=== PATIENT | male | born 1970 | race Caucasian/White ===

== ENCOUNTER 2016-10-28 12:40 | Inpatient (IN) | payer MEDICARE ==
[~2016-10-28] VITALS: Ht 190.5 cm; Wt 83.3 kg
[~2016-10-28 12:40] MED LIST: IBUP-238 PO; METH500T3 PO; VICO7.5T PO; XANA1TAB6 PO
[2016-10-28 12:44] VITALS: BP 97/58; PULSE 100; RESP 18; O2SAT 93
[2016-10-28] MEDS ORDERED: SODIUM CHLOR 0.9% 1000 ML INJ 1,000 ML IV SCH (12:49)
[2016-10-28] MEDS ORDERED: ONDANSETRON HCL 4 MG/2 ML VIAL IV PUSH ONE (13:00)
[2016-10-28] MEDS ORDERED: NALOXONE HCL 0.4 MG/ML AMP IV PUSH ONE (13:00)
[2016-10-28] MEDS ORDERED: SODIUM CHLORIDE 0.9% FLUSH 5 ML FLUSH IVF PRN (13:00)
--- NOTE | 2016-10-28 13:03 | PD ---
HPI Chief Complaint: Altered Mental Status Time Seen by Provider: 12:54 Travel History International Travel<30 days: No Contact w/Intl Traveler<30days: No Traveled to known affect area: No History of Present Illness HPI Patient comes in by EMS after being found on the sidewalk by neighbors and found to be somewhat altered. Patient is aware he is at the hospital but is not sure why he is here. States that he was told that he fell down, but does not remember falling. Patient states he has a history of MS and is on OxyContin , oxycodone, and Xanax. Patient denies any alcohol use. Patient denies any pain anywhere currently. EMS reportedly gave patient 0.4mg Narcan which seemed to allow the patient to wake up and start answering questions. EMS also reports inside patient's home there was a lot of broken glass as question of the patient falling downstairs in the house. Patient was C-collared by EMS however reportedly the patient remove this on his own. Patient is answering questions appropriately however falls back asleep quickly appears possibly overly medicated versus other limiting H&P at this time. PFSH Past Medical History Diabetes: No Diminished Hearing: No Musculoskeletal: Yes (chronic back pain.) Immunizations Current: No Seizures: Yes (NO MEDS) Thyroid Disease: Yes Past Surgical History Other Surgery: Yes (AFTER [place]) Social History Alcohol Use: No Tobacco Use: Yes (1 ppd) Substance Use: No Allergies-Medications (Allergen,Severity, Reaction): Coded Allergies: No Known Allergies (Verified , 10/28/16) Reported Meds & Prescriptions Reported Meds & Active Scripts Active Reported Methocarbamol 500 Mg Tab 500 Mg PO QID Motrin (Ibuprofen) 800 Mg Tab 800 Mg PO TID PRN Xanax 1 mg (Alprazolam) 1 Mg Tab 1 Mg PO BIDPRN Vicodin Es7.5 - 750 Mg/7.5 Mg Tab 1 Tab PO Q4-6 HR. PRN FOR PAIN Review of Systems ROS Limitations: Altered Mental Status Except as stated in HPI: all other systems reviewed are Neg Physical Exam Exam Limitations: Altered Mental Status Narrative GENERAL: Well-developed, well nourished, in no acute distress, and non-ill appearing. SKIN: Warm and dry. Small abrasion noted at the tip of the naris and old appearing laceration noted second toe left foot. HEAD: Atraumatic. Normocephalic. EYES: Pupils equal and round and pinpoint. EOMI. No scleral icterus. No injection or drainage. ENT: No nasal bleeding or discharge. Mucous membranes pink and moist. No septal hematoma. No fracture, loose, or missing teeth noted. NECK: Trachea midline. No no midline tenderness or crepitus noted. Supple. No nuclear rigidity. CARDIOVASCULAR: Regular rate and rhythm. No murmur appreciated. RESPIRATORY: No accessory muscle use. No respiratory distress. Clear to auscultation. Breath sounds equal bilaterally. GASTROINTESTINAL: Abdomen soft, non-tender, nondistended. Hepatic and splenic margins not palpable. Normal bowel sounds 4. No pulsatile mass. MUSCULOSKELETAL: No obvious deformities. No clubbing. No cyanosis. No edema. NEUROLOGICAL: No obvious cranial nerve deficits. Data Data Last Documented VS Vital Signs Date Time Temp Pulse Resp B/P Pulse Ox O2 Delivery O2 Flow Rate FiO2 10/28/16 13:46 16 95 Nasal Cannula 3 10/28/16 12:47 100 10/28/16 12:44 97/58 Orders Electrocardiogram (10/28/16 12:49) Alcohol (Ethanol) (10/28/16 12:49) Ammonia (10/28/16 12:49) Basic Metabolic Panel (Bmp) (10/28/16 12:49) Creatine Kinase (Cpk) (10/28/16 12:49) Drug Screen, Random Urine (10/28/16 12:49) Prothrombin Time / Inr (Pt) (10/28/16 12:49) Act Partial Throm Time (Ptt) (10/28/16 12:49) Salicylates (Aspirin) (10/28/16 12:49) Troponin I (10/28/16 12:49) Tylenol (Acetaminophen) (10/28/16 12:49) Thyroid Stimulating Hormone (10/28/16 12:49) Urinalysis - C+S If Indicated (10/28/16 12:49) Ct Brain W/O Iv Contrast(Rout) (10/28/16 12:49) Blood Glucose (10/28/16 12:49) Ecg Monitoring (10/28/16 12:49) Iv Access Insert/Monitor (10/28/16 12:49) Oximetry (10/28/16 12:49) Sodium Chloride 0.9% Flush (Ns Flush) (10/28/16 13:00) Sodium Chlor 0.9% 1000 Ml Inj (Ns 1000 M (10/28/16 12:49) Naloxone Inj (Narcan Inj) (10/28/16 13:00) Ondansetron Inj (Zofran Inj) (10/28/16 13:00) Ct Facial Bones W/O Iv Cont (10/28/16 ) Ct Cerv Spine W/O Contrast (10/28/16 ) Foot, Complete ([id number]) (10/28/16 ) Tetanus/Diphtheria Tox Adult (Tetanus/Di (10/28/16 13:15) Wound Care (10/28/16 13:01) Complete Blood Count With Diff (10/28/16 14:21) CKMB (10/28/16 13:50) CKMB% (10/28/16 13:50) Sodium Chlor 0.9% 1000 Ml Inj (Ns 1000 M (10/28/16 15:00) Admit Order (Ed Use Only) (10/28/16 15:25) Labs Laboratory Tests Test 10/28/16 10/28/16 13:50 15:20 Prothrombin Time 11.0 SEC Prothromb Time International 1.0 RATIO Ratio Activated Partial 24.0 SEC Thromboplast Time Sodium Level 138 MEQ/L Potassium Level 5.0 MEQ/L Chloride Level 101 MEQ/L Carbon Dioxide Level 25.6 MEQ/L Anion Gap 11 MEQ/L Blood Urea Nitrogen 31 MG/DL Creatinine 2.25 MG/DL Estimat Glomerular Filtration 31 ML/MIN Rate Random Glucose 121 MG/DL Calcium Level 7.7 MG/DL Ammonia 43 MCMOL/L Total Creatine Kinase 2145 U/L Creatine Kinase MB 61.3 NG/ML Creatine Kinase MB % 2.9 % Troponin I 0.18 NG/ML Thyroid Stimulating Hormone 0.519 uIU/ML 3rd Gen Salicylates Level LESS THAN 1.7 MG/DL Acetaminophen Level LESS THAN 2.0 MCG/ML Ethyl Alcohol Level LESS THAN 3 MG/DL White Blood Count 13.9 TH/MM3 Red Blood Count 4.50 MIL/MM3 Hemoglobin 14.3 GM/DL Hematocrit 41.7 % Mean Corpuscular Volume 92.5 FL Mean Corpuscular Hemoglobin 31.8 PG Mean Corpuscular Hemoglobin 34.4 % Concent Red Cell Distribution Width 13.5 % Platelet Count 203 TH/MM3 Mean Platelet Volume 7.9 FL Neutrophils (%) (Auto) 89.0 % Lymphocytes (%) (Auto) 3.8 % Monocytes (%) (Auto) 7.1 % Eosinophils (%) (Auto) 0.0 % Basophils (%) (Auto) 0.1 % Neutrophils # (Auto) 12.3 TH/MM3 Lymphocytes # (Auto) 0.5 TH/MM3 Monocytes # (Auto) 1.0 TH/MM3 Eosinophils # (Auto) 0.0 TH/MM3 Basophils # (Auto) 0.0 TH/MM3 CBC Comment DIFF FINAL Differential Comment MDM Medical Decision Making Medical Screen Exam Complete: Yes Emergency Medical Condition: Yes Interpretation(s) EKG reviewed by Dr. Clements, shows normal sinus rhythm with ventricular rate of 95. No STEMI. Differential Diagnosis Intracranial hemorrhage, fracture, strain, accidental overdose, intentional overdose, acute coronary syndrome, rhabdo, electrolyte abnormality, other Narrative Course 1430 patient always alert and starting second dose of Narcan. Patient states she was getting a small ring walk and still does not remember falling down stairs. Patient's girlfriend states she lives across the street and fell she thought to be fresh blood from him falling on the stairs. She reports patient has fallen previously secondary to MS. Patient denies any complaints or concerns currently. Denies any pain anywhere and wants to leave. Patient was advised we're waiting all his tests to return her to hopefully discharging him home. Patient is agreeable to stay at this time. 1500 discussed laboratory findings with patient and significant other who is at bedside. Explained to the patient the importance of needing to be admitted secondary to abnormal findings here today in the emergency department. Patient is agreeable to stay at this time. All questions were answered. Discussed patient with Dr. Clements, who saw and evaluated the patient and is in agreement with plan of care and disposition. Physician Communication Physician Communication [address] Coffman, who is on-call for the residents, and is agreeable to admit the patient for Dr. Seals. Diagnosis Primary Impression: Rhabdomyolysis Qualified Code: T79.6XXA - Traumatic rhabdomyolysis, initial encounter Additional Impression: Elevated troponin Admitting Information Admitting Physician Requests: Admit Condition: Stable Zackary Schaffer Oct 28, 2016 13:03
[2016-10-28] MEDS ORDERED: TETANUS/DIPHTHERIA TOXOID ADULT 0.5 ML VIAL IM ONE (13:15)
--- NOTE | 2016-10-28 13:41 | RADRPT ---
EXAM DATE/TIME: 10/28/2016 13:20 [facility] COMPARISON: No previous studies available for comparison. INDICATIONS : Found down on a sidewalk. Altered mental status. RADIATION DOSE: 47.85 CTDIvol (mGy) MEDICAL HISTORY : Seizures. SURGICAL HISTORY : None. ENCOUNTER: Initial ACUITY: 1 day PAIN SCALE: 0/10 LOCATION: cranial TECHNIQUE: Multiple contiguous axial images were obtained of the head. Using automated exposure control and adj ustment of the mA and/or kV according to patient size, radiation dose was kept as low as reasonably a chievable to obtain optimal diagnostic quality images. FINDINGS: There is mild diffuse motion artifact. CEREBRUM: The ventricles are normal for age. No evidence of midline shift, mass lesion, hemorrhage or acute in farction. No extra-axial fluid collections are seen. POSTERIOR FOSSA: The cerebellum and brainstem are intact. The 4th ventricle is midline. The cerebellopontine angle i s unremarkable. EXTRACRANIAL: The visualized portion of the orbits is intact. Or fluid level in the right maxillary sinus. SKULL: The calvaria is intact. No evidence of skull fracture. CONCLUSION: 1. Mild diffuse motion artifact. 2. No acute hemorrhage or mass effect. 3. Small air-fluid level in the right maxillary sinus. Rolando Singh MD on October 28, 2016 at 13:37 Board Certified Radiologist. This report was verified electronically.
[2016-10-28 13:46] VITALS: RESP 16; O2SAT 95
--- NOTE | 2016-10-28 13:53 | RADRPT ---
EXAM DATE/TIME: 10/28/2016 13:20 [facility] COMPARISON: No previous studies available for comparison. INDICATIONS : Found down on the sidewalk. Altered mental status.. RADIATION DOSE: 49.75 CTDIvol (mGy) MEDICAL HISTORY : Seizures. SURGICAL HISTORY : None. ENCOUNTER: Initial ACUITY: 1 day PAIN SCALE: 4/10 LOCATION: neck TECHNIQUE: Volumetric scanning of the cervical spine was performed. Multiplanar reconstructions in the sagittal, coronal and oblique axial planes were performed. Using automated exposure control and adjustment o f the mA and/or kV according to patient size, radiation dose was kept as low as reasonably achievable to obtain optimal diagnostic quality images. FINDINGS: The sagittal reconstructions demonstrate normal alignment and normal prevertebral soft tissues. The d ens is intact and there is a normal atlantoaxial relationship. The axial images demonstrate that the vertebral bodies and posterior elements are intact. The soft ti ssues are within normal limits. There is no evidence of acute fracture or malalignment. CONCLUSION: Negative trauma CT. Rolando Singh MD on October 28, 2016 at 13:49 Board Certified Radiologist. This report was verified electronically.
--- NOTE | 2016-10-28 13:55 | RADRPT ---
EXAM DATE/TIME: 10/28/2016 13:20 [facility] COMPARISON: No previous studies available for comparison. INDICATIONS : Trauma, found down in the sidewalk. Altered mental status.. RADIATION DOSE: 29.51 CTDIvol (mGy) MEDICAL HISTORY : Seizures. SURGICAL HISTORY : None. ENCOUNTER: Initial ACUITY: 1 day PAIN SCORE: 6/10 LOCATION: facial TECHNIQUE: Volumetric scanning of the facial bones was performed. Using automated exposure control and adjustme nt of the mA and/or kV according to patient size, radiation dose was kept as low as reasonably achiev able to obtain optimal diagnostic quality images. FINDINGS: ORBITS: The orbital and infraorbital osseous structures are intact. The retroconal structures have a normal configuration. No radiopaque foreign bodies are seen. NASAL BONE: The nasal bone and maxillary spine are intact ZYGOMATIC ARCHES: Symmetric without evidence of fracture. SINUSES: There is a small air-fluid level in right maxillary sinus. NASAL CAVITY: The nasal septum is intact and midline. The lacrimal ducts are intact. SOFT TISSUES: No radiopaque foreign bodies seen. No soft-tissue swelling is seen. INTRACRANIAL: No intracranial air seen. CRIBIFORM PLATE: Grossly intact. CONCLUSION: 1. No evidence of facial bone fracture. 2. Small air-fluid level in the right maxillary sinus and mucosal both maxillary sinuses and the ante rior ethmoidal air cells. both maxillary sinuses. Rolando Singh MD on October 28, 2016 at 13:52 Board Certified Radiologist. This report was verified electronically.
[2016-10-28 14:31] LABS: ANION GAP 11 MEQ/L (5-15); BICARBONATE 25.6 MEQ/L (21.0-32.0); BLOOD UREA NITROGEN 31 MG/DL (7-18); CHLORIDE 101 MEQ/L (98-107); GLOMERULAR FILTRATION RATE 31 ML/MIN (>89); SODIUM (NA) 138 MEQ/L (136-145)
[2016-10-28 14:45] LABS: ACETAMINOPHEN LESS THAN 2.0 MCG/ML (10.0-30.0); CREATINE KINASE 2145 U/L (39-308)
[2016-10-28 14:57] LABS: CKMB 61.3 NG/ML (0.5-3.6)
[2016-10-28] MEDS ORDERED: SODIUM CHLOR 0.9% 1000 ML INJ 1,000 ML IV ONE (15:00)
--- NOTE | 2016-10-28 15:10 | RADRPT ---
EXAM DATE/TIME: 10/28/2016 14:30 [facility] COMPARISON: No previous studies available for comparison. INDICATIONS : Left foot pain post fall from stairs. MEDICAL HISTORY : None. SURGICAL HISTORY : None. ENCOUNTER: Initial ACUITY: 1 day PAIN SCORE: 09/30 LOCATION: Left foot FINDINGS: Three view examination of the left foot demonstrates no soft tissue swelling, dislocation, or fractur e. The tarsal bones appear intact. The interphalangeal and metatarsophalangeal joints are intact. The calcaneus is intact. Bony mineralization is normal. CONCLUSION: No acute osseous injury. Samy Russ MD on October 28, 2016 at 15:06 Board Certified Radiologist. This report was verified electronically.
[2016-10-28 15:44] LABS: AUTOMATED NEUTROPHIL # 12.3 TH/MM3 (1.8-7.7); BASOPHIL % 0.1 % (0.0-2.0); HEMATOCRIT 41.7 % (39.0-51.0); HEMO FLAGS DIFF FINAL; LYMPH % 3.8 % (9.0-44.0); LYMPHOCYTE # 0.5 TH/MM3 (1.0-4.8); MEAN CELL VOLUME 92.5 FL (80.0-100.0); MEAN CORPUSCULAR HEMOGLOBIN 31.8 PG (27.0-34.0); MEAN CORPUSCULAR HGB CONC 34.4 % (32.0-36.0); MONO % 7.1 % (0.0-8.0); PLATELET COUNT 203 TH/MM3 (150-450); RED CELL DISTRIBUTION WIDTH 13.5 % (11.6-17.2); WHITE BLOOD COUNT 13.9 TH/MM3 (4.0-11.0)
[2016-10-28] MEDS ORDERED: FLUMAZENIL 0.5 MG/5 ML VIAL IV PUSH PRN (16:15)
[2016-10-28] MEDS ORDERED: NALOXONE HCL 0.4 MG/ML AMP IV PRN (16:15)
[2016-10-28] MEDS ORDERED: LORazepam 2 MG TAB PO PRN (16:15)
[2016-10-28] MEDS ORDERED: BISACODYL 10 MG SUPP PR PRN (16:15)
[2016-10-28] MEDS ORDERED: LORazepam 1 MG TAB PO PRN (16:15)
[2016-10-28] MEDS ORDERED: DEXT 5%-NACL 0.45% 1000 ML INJ 1,000 ML IV SCH (16:15)
[2016-10-28] MEDS ORDERED: LORazepam 2 MG/ML VIAL IV PUSH PRN ×4 (16:15)
[2016-10-28] MEDS ORDERED: ONDANSETRON HCL 4 MG/2 ML VIAL IVP PRN (16:15)
[2016-10-28] MEDS ORDERED: ACETAMINOPHEN 325 MG TAB PO PRN (16:15)
[2016-10-28] MEDS ORDERED: SODIUM CHLORIDE 0.9% FLUSH 5 ML FLUSH FLUSH PRN (16:15)
--- NOTE | 2016-10-28 16:18 | HHI.HP ---
HPI Service Family Medicine Primary Care Physician No Primary Care Physician Admission Diagnosis rhabdomyolysis, elevated troponin Diagnoses: International Travel<30 Days: No Contact w/Intl Traveler<30days: No Known Affected Area: No History of Present Illness History obtained from his girlfriend as patient would fall asleep during exam. This is a 46-year-old male with past medical history significant for multiple sclerosis per girlfriend he takes some sort of seizure medication but doesn't know what it is for his MS off-and-on. He is not currently following up with anyone though his neurologist is Dr. Sauceda. He gets pain medicines and he sees a pain management doctor for his chronic pain caused by his MS. He is otherwise taking his pain medications on time and as prescribed. Today he was upstairs at his house when he says he fell down the stairs. He doesn't know why he fell down the stairs. Neighbors saw him fall rushed over tried to help him he was confused and disoriented and they called 911. While in the ambulance he received a dose of Narcan and became less confused. And upon arriving in the ED he received a second dose of Narcan and his altered mental status also improved. By time of evaluation he would answer questions and then falls right back to sleep. (Manuel Coffman MD R2) Review of Systems ROS Limitations: Clinical Condition, Altered Mental Status, Unresponsive (Manuel Coffman MD R2) Past Family Social History Past Medical History MS Seizures caused by the MS Pain by the MS HTN Past Surgical History Hernia Repair Reported Medications Reported Meds & Active Scripts Active Reported Robaxin (Methocarbamol) 500 Mg Tab 500 Mg PO QID Motrin (Ibuprofen) 800 Mg Tab 800 Mg PO TID PRN Xanax (Alprazolam) 1 Mg Tab 1 Mg PO BIDPRN Vicodin Es 7.5/750 (Acetaminophen/Hydrocodone Bitart) 750 Mg/7.5 Mg Tab 1 Tab PO Q4-6 HR. PRN FOR PAIN (Manuel Coffman MD R2) Allergies: Coded Allergies: No Known Allergies (Verified , 10/28/16) Active Ordered Medications Current Medications Medications (Trade) Dose Ordered Sig/Ron Route Start Time Stop Time Status Last Admin (NS Flush) 2 ml UNSCH PRN FLUSH 10/28/16 16:15 (NS Flush) 2 ml BID FLUSH 10/28/16 21:00 (Tylenol) 650 mg Q4H PRN PO 10/28/16 16:15 (Zofran Inj) 4 mg Q6H PRN IVP 10/28/16 16:15 (Dulcolax Supp) 10 mg DAILY PRN PA 10/28/16 16:15 (Narcan Inj) 0.4 mg UNSCH PRN IV 10/28/16 16:15 (Romazicon Inj) 0.2 mg Q1M PRN IV PUSH 10/28/16 16:15 (Ativan) 1 mg Q4H PRN PO 10/28/16 16:15 (Ativan Inj) 1 mg Q4H PRN IV PUSH 10/28/16 16:15 (Ativan) 2 mg Q2H PRN PO 10/28/16 16:15 (Ativan Inj) 2 mg Q2H PRN IV PUSH 10/28/16 16:15 (Ativan Inj) 2 mg Q1H PRN IV PUSH 10/28/16 16:15 (Ativan Inj) 2 mg Q15M PRN IV PUSH 10/28/16 16:15 (Vitamin B1) 100 mg DAILY PO 10/29/16 09:00 (Folate) 1 mg DAILY PO 10/29/16 09:00 Multivitamins 1 tab 1 tab DAILY PO 10/29/16 09:00 (D5W-1/2 NS 1000 ml Inj) 1,000 ml @ 70 mls/hr [id number] IV 10/28/16 16:15 (Robaxin) 500 mg QID PO 10/28/16 18:00 Family History Noncontributory Social History Lives at home in a house in [facility] Admits to smoking pack cigarettes a day Denies alcohol Admits to smoking marijuana (Manuel Coffman MD R2) Physical Exam Vital Signs Vital Signs Date Time Temp Pulse Resp B/P Pulse Ox O2 Delivery O2 Flow Rate FiO2 10/28/16 13:46 16 95 Nasal Cannula 3 10/28/16 12:47 100 18 94 Nasal Cannula 2 10/28/16 12:44 100 18 97/58 93 Physical Exam GENERAL: This is a well-nourished, well-developed patient, in no apparent distress. SKIN: No rashes, ecchymoses or lesions. Cool and dry. HEAD: Atraumatic. Normocephalic. No temporal or scalp tenderness. EYES: Pupils equal round and reactive. Extraocular motions intact. No scleral icterus. No injection or drainage. ENT: Nose without bleeding, purulent drainage or septal hematoma. Throat without erythema, tonsillar hypertrophy or exudate. Uvula midline. Airway patent. NECK: Trachea midline. No JVD or lymphadenopathy. Supple, nontender, no meningeal signs. CARDIOVASCULAR: Regular rate and rhythm without murmurs, gallops, or rubs. RESPIRATORY: Clear to auscultation. Breath sounds equal bilaterally. No wheezes , rales, or rhonchi. GASTROINTESTINAL: Abdomen soft, non-tender, nondistended. No hepato-splenomegaly , or palpable masses. No guarding. MUSCULOSKELETAL: Extremities without clubbing, cyanosis, or edema. No joint tenderness, effusion, or edema noted. No calf tenderness. Negative Homans sign bilaterally. NEUROLOGICAL: Awake and alert. Cranial nerves II through XII intact. Motor and sensory grossly within normal limits. Five out of 5 muscle strength in all muscle groups. Normal speech. Laboratory Laboratory Tests Test 10/28/16 13:50 Prothrombin Time 11.0 Prothromb Time International 1.0 Ratio Activated Partial 24.0 Thromboplast Time Sodium Level 138 Potassium Level 5.0 Chloride Level 101 Carbon Dioxide Level 25.6 Anion Gap 11 Blood Urea Nitrogen 31 Creatinine 2.25 Estimat Glomerular Filtration 31 Rate Random Glucose 121 Calcium Level 7.7 Ammonia 43 Total Creatine Kinase 2145 Creatine Kinase MB 61.3 Creatine Kinase MB % 2.9 Troponin I 0.18 Thyroid Stimulating Hormone 0.519 3rd Gen Salicylates Level LESS THAN 1.7 Acetaminophen Level LESS THAN 2.0 Ethyl Alcohol Level LESS THAN 3 (Manuel Coffman MD R2) Result Diagram: 10/28/16 1350 Imaging Last Impressions Head CT 10/28/16 1249 Signed Impressions: Service Date/Time: Friday, October 28, 2016 13:20 - CONCLUSION: 1. Mild diffuse motion artifact. 2. No acute hemorrhage or mass effect. 3. Small air-fluid level in the right maxillary sinus. Rolando Singh MD Maxillofacial CT 10/28/16 0000 Signed Impressions: Service Date/Time: Friday, October 28, 2016 13:20 - CONCLUSION: 1. No evidence of facial bone fracture. 2. Small air-fluid level in the right maxillary sinus and mucosal both maxillary sinuses and the anterior ethmoidal air cells. both maxillary sinuses. Rolando Singh MD Foot X-Ray 10/28/16 0000 Signed Impressions: Service Date/Time: Friday, October 28, 2016 14:30 - CONCLUSION: No acute osseous injury. Samy Russ MD Chest X-Ray 10/28/16 0000 Signed Impressions: Service Date/Time: Friday, October 28, 2016 14:54 - CONCLUSION: No acute disease. Rolando Singh MD Cervical Spine CT 10/28/16 0000 Signed Impressions: Service Date/Time: Friday, October 28, 2016 13:20 - CONCLUSION: Negative trauma CT. Rolando Singh MD (Manuel Coffman MD R2) Assessment and Plan Assessment and Plan This is a 46-year-old male with past medical history significant for multiple sclerosis. Admitted for rhabdomyolysis, altered mental status lead to be due to opiate overdose Code Status Full code Discussed Condition With [facility]: Dr. Seals (Manuel Coffman MD R2) Attending Attestation THIS CASE WAS DISCUSSED WITH THE RESIDENT PHYSICIAN. I HAVE REVIEWED THE RECORD AND AGREE WITH THE ABOVE NOTE AND PLAN OF CARE WAS DISCUSSED. I HAVE AUTHORIZED THE ORDER FOR PLACEMENT IN OUT-PATIENT OBSERVATION STATUS. (Kenneth Seals MD) Problem List: (1) Altered mental status Status: Acute Plan: Patient being admitted after a fall down the stairs. He was in altered mental status after this fall. Mental status improved with Narcan. Altered mental status believed to be due to opiate overdose versus seizure versus TIA * Admitted to observation * Consulted patient's neurologist Dr. Sauceda: Recommendations appreciated * Placed on CIWA protocol * Holding opiates at this time, we'll slowly restart upon improvement of mental status * Rally pack * Zofran 4 mg IV when necessary nausea or vomiting * D5 half-normal saline IV fluids * Drug screen: Pending * Trending troponins * Trending CK-MB * CBC, BMP ordered for the a.m. * UA ordered: Results pending * Pneumonia ordered: Results pending * AST/ALT ordered: Results pending (2) Rhabdomyolysis Status: Acute Plan: Found have elevated creatinine kinase. Believed to be due to the fall. Admission levels total creatinine kinase 2145 * Status post bolus in the ED * IV fluids at this time * Continue to monitor (3) Elevated troponin Status: Acute Plan: Elevated troponin believed to be due to the rhabdomyolysis * Trending troponins * Trending EKG: Currently EKG normal (4) MS (multiple sclerosis) Status: Acute Plan: Patient wants a history of MS. * Continue Topamax 25 mg by mouth 3 times a day * Holding Glatiramer at this time * Neurology was consulted and recommendations appreciated (5) Fall Status: Acute Plan: Patient had a fall down the stairs * Imaging: Within normal limits see above * See altered mental status plan above (6) Nutrition, metabolism, and development symptoms Status: Acute Plan: Regular diet Bed rest with bathroom privileges [facility] protocol Telemetry Neuro checks every 4 Vitals every 4 SCDs for DVT prophylaxis Titrate oxygen accordingly Monitor electrolytes replace accordingly CODE STATUS: Full code Disposition: Pending improvement of mental status (Manuel Coffman MD R2) Problem Qualifiers (1) Altered mental status: Qualified Code: R40.0 - Somnolence (2) Rhabdomyolysis: Qualified Code: T79.6XXA - Traumatic rhabdomyolysis, initial encounter Manuel Coffman MD R2 Oct 28, 2016 16:18 Kenneth Seals MD Oct 30, 2016 08:13
--- NOTE | 2016-10-28 16:43 | PD ---
Physical Exam Date Seen by Provider: Oct 28, 2016 Time Seen by Provider: 13:30 Narrative I, Dr. Clements, have reviewed the advance practice practitioner's documentation and am in agreement, met with the patient face to face, made the diagnosis, and the medical decision making was done by me. *My assessment and Findings: Patient was seen by me along with PA, please see PA note for further details. Patient presents to the ER brought in by EMS, apparently was found unresponsive at the bottom of the stairs, it is unclear what happened. He was given Narcan on scene and had awoken to Narcan. He admits to using chronic opiates. He does not remember what happened and how he fell. GENERAL: Well-nourished, well-developed middle age white male patient who is lethargic, but awake appointed able to answer some questions. SKIN: Warm and dry. Abrasions notable over the left second and third toes. HEAD: Normocephalic. EYES: No scleral icterus. No injection or drainage. Pupils are round, pinpoint , poorly reactive to light bilaterally. NECK: Supple, trachea midline. No JVD or lymphadenopathy. CARDIOVASCULAR: Regular rate and rhythm without murmurs, gallops, or rubs. RESPIRATORY: Breath sounds equal bilaterally. No accessory muscle use. GASTROINTESTINAL: Abdomen soft, non-tender, nondistended. MUSCULOSKELETAL: No cyanosis, or edema. BACK: Nontender without obvious deformity. No CVA tenderness. EXTREMITIES: No clubbing, cyanosis, or edema. No joint tenderness, effusion, or edema noted. EKG shows NSR, no ST elevation or depression, and no arrhythmias. No significant T-wave inversions. Laboratory Tests Test 10/28/16 10/28/16 13:50 15:20 Activated Partial 24.0 SEC Thromboplast Time (24.3-30.1) Blood Urea Nitrogen 31 MG/DL (7-18) Creatinine 2.25 MG/DL (0.60-1.30) Estimat Glomerular Filtration 31 ML/MIN (>89) Rate Random Glucose 121 MG/DL (74-106) Calcium Level 7.7 MG/DL (8.5-10.1) Ammonia 43 MCMOL/L (11-32) Total Creatine Kinase 2145 U/L (39-308) Creatine Kinase MB 61.3 NG/ML (0.5-3.6) Troponin I 0.18 NG/ML (0.02-0.05) Salicylates Level LESS THAN 1.7 MG/DL (2.8-20.0) Acetaminophen Level LESS THAN 2.0 MCG/ML (10.0-30.0) White Blood Count 13.9 TH/MM3 (4.0-11.0) Neutrophils (%) (Auto) 89.0 % (16.0-70.0) Lymphocytes (%) (Auto) 3.8 % (9.0-44.0) Neutrophils # (Auto) 12.3 TH/MM3 (1.8-7.7) Lymphocytes # (Auto) 0.5 TH/MM3 (1.0-4.8) Monocytes # (Auto) 1.0 TH/MM3 (0-0.9) Last [address] 10/28/16 1249 Signed Impressions: Service Date/Time: Friday, October 28, 2016 13:20 - CONCLUSION: 1. Mild diffuse motion artifact. 2. No acute hemorrhage or mass effect. 3. Small air-fluid level in the right maxillary sinus. Rolando Singh MD Maxillofacial CT 10/28/16 0000 Signed Impressions: Service Date/Time: Friday, October 28, 2016 13:20 - CONCLUSION: 1. No evidence of facial bone fracture. 2. Small air-fluid level in the right maxillary sinus and mucosal both maxillary sinuses and the anterior ethmoidal air cells. both maxillary sinuses. Rolando Singh MD Foot X-Ray 10/28/16 0000 Signed Impressions: Service Date/Time: Friday, October 28, 2016 14:30 - CONCLUSION: No acute osseous injury. Samy Russ MD Cervical Spine CT 10/28/16 0000 Signed Impressions: Service Date/Time: Friday, October 28, 2016 13:20 - CONCLUSION: Negative trauma CT. Rolando Singh MD CT of the brain did not reveal any signs of acute injuries. CT of the C-spine and facial bones is otherwise negative for acute injuries. Lab work indicates significant rhabdomyolysis and acute renal failure. EKG did not show any signs of acute dysrhythmias or ST elevations. His troponin is mildly elevated. At this point, my plan would be to admit the patient for further treatment of rhabdomyolysis and follow-through of renal dysfunction and elevated troponin. Case is discussed with [facility] resident service for admission. Data Data Last Documented VS Vital Signs Date Time Temp Pulse Resp B/P Pulse Ox O2 Delivery O2 Flow Rate FiO2 10/28/16 13:46 16 95 Nasal Cannula 3 10/28/16 12:47 100 10/28/16 12:44 97/58 Orders Electrocardiogram (10/28/16 12:49) Alcohol (Ethanol) (10/28/16 12:49) Ammonia (10/28/16 12:49) Basic Metabolic Panel (Bmp) (10/28/16 12:49) Creatine Kinase (Cpk) (10/28/16 12:49) Drug Screen, Random Urine (10/28/16 12:49) Prothrombin Time / Inr (Pt) (10/28/16 12:49) Act Partial Throm Time (Ptt) (10/28/16 12:49) Salicylates (Aspirin) (10/28/16 12:49) Troponin I (10/28/16 12:49) Tylenol (Acetaminophen) (10/28/16 12:49) Thyroid Stimulating Hormone (10/28/16 12:49) Urinalysis - C+S If Indicated (10/28/16 12:49) Ct Brain W/O Iv Contrast(Rout) (10/28/16 12:49) Blood Glucose (10/28/16 12:49) Ecg Monitoring (10/28/16 12:49) Iv Access Insert/Monitor (10/28/16 12:49) Oximetry (10/28/16 12:49) Sodium Chloride 0.9% Flush (Ns Flush) (10/28/16 13:00) Sodium Chlor 0.9% 1000 Ml Inj (Ns 1000 M (10/28/16 12:49) Naloxone Inj (Narcan Inj) (10/28/16 13:00) Ondansetron Inj (Zofran Inj) (10/28/16 13:00) Ct Facial Bones W/O Iv Cont (10/28/16 ) Ct Cerv Spine W/O Contrast (10/28/16 ) Foot, Complete ([id number]) (10/28/16 ) Tetanus/Diphtheria Tox Adult (Tetanus/Di (10/28/16 13:15) Wound Care (10/28/16 13:01) Complete Blood Count With Diff (10/28/16 14:21) CKMB (10/28/16 13:50) CKMB% (10/28/16 13:50) Sodium Chlor 0.9% 1000 Ml Inj (Ns 1000 M (10/28/16 15:00) Admit Order (Ed Use Only) (10/28/16 15:25) Labs Laboratory Tests Test 10/28/16 10/28/16 13:50 15:20 Prothrombin Time 11.0 SEC Prothromb Time International 1.0 RATIO Ratio Activated Partial 24.0 SEC Thromboplast Time Sodium Level 138 MEQ/L Potassium Level 5.0 MEQ/L Chloride Level 101 MEQ/L Carbon Dioxide Level 25.6 MEQ/L Anion Gap 11 MEQ/L Blood Urea Nitrogen 31 MG/DL Creatinine 2.25 MG/DL Estimat Glomerular Filtration 31 ML/MIN Rate Random Glucose 121 MG/DL Calcium Level 7.7 MG/DL Ammonia 43 MCMOL/L Total Creatine Kinase 2145 U/L Creatine Kinase MB 61.3 NG/ML Creatine Kinase MB % 2.9 % Troponin I 0.18 NG/ML Thyroid Stimulating Hormone 0.519 uIU/ML 3rd Gen Salicylates Level LESS THAN 1.7 MG/DL Acetaminophen Level LESS THAN 2.0 MCG/ML Ethyl Alcohol Level LESS THAN 3 MG/DL White Blood Count 13.9 TH/MM3 Red Blood Count 4.50 MIL/MM3 Hemoglobin 14.3 GM/DL Hematocrit 41.7 % Mean Corpuscular Volume 92.5 FL Mean Corpuscular Hemoglobin 31.8 PG Mean Corpuscular Hemoglobin 34.4 % Concent Red Cell Distribution Width 13.5 % Platelet Count 203 TH/MM3 Mean Platelet Volume 7.9 FL Neutrophils (%) (Auto) 89.0 % Lymphocytes (%) (Auto) 3.8 % Monocytes (%) (Auto) 7.1 % Eosinophils (%) (Auto) 0.0 % Basophils (%) (Auto) 0.1 % Neutrophils # (Auto) 12.3 TH/MM3 Lymphocytes # (Auto) 0.5 TH/MM3 Monocytes # (Auto) 1.0 TH/MM3 Eosinophils # (Auto) 0.0 TH/MM3 Basophils # (Auto) 0.0 TH/MM3 CBC Comment DIFF FINAL Differential Comment MDM Medical Record Reviewed: Yes Supervised Visit with CHRISTOPHER: Yes Diagnosis Primary Impression: Rhabdomyolysis Qualified Code: T79.6XXA - Traumatic rhabdomyolysis, initial encounter Additional Impression: Elevated troponin Admitting Information Admitting Physician Requests: Admit Condition: Stable Linsey Clements MD Oct 28, 2016 16:42
--- NOTE | 2016-10-28 17:08 | RADRPT ---
EXAM DATE/TIME: 10/28/2016 14:54 [place] COMPARISON: No previous studies available for comparison. INDICATIONS : Shortness of breath. MEDICAL HISTORY : Seizures. SURGICAL HISTORY : None. ENCOUNTER: Initial ACUITY: 1 day PAIN SCORE: 0/10 LOCATION: Bilateral chest FINDINGS: A single view of the chest demonstrates the lungs to be symmetrically aerated without evidence of mas s, infiltrate or effusion. The cardiomediastinal contours are unremarkable. Osseous structures are intact. CONCLUSION: No acute disease. Roalndo Singh MD on October 28, 2016 at 17:05 Board Certified Radiologist. This report was verified electronically.
[2016-10-28] MEDS ORDERED: BUPR150XL PO (17:43)
[2016-10-28] MEDS ORDERED: OXYC60TA8 PO (17:43)
[2016-10-28] MEDS ORDERED: ALPR0.5T3 PO (17:43)
[2016-10-28] MEDS ORDERED: TOPA25TA8 PO (17:43)
[2016-10-28] MEDS ORDERED: GLAT1INJ SQ (17:43)
[2016-10-28] MEDS ORDERED: PERC10TA27 PO (17:43)
[2016-10-28] MEDS: METHOCARBAMOL 500 MG TAB PO SCH (18:00)
[2016-10-28 18:40] VITALS: BP 118/78; PULSE 81; RESP 17; O2SAT 96
[2016-10-28 19:32] VITALS: BP 118/75; PULSE 82; RESP 16; TEMP 98.4; O2SAT 97
[2016-10-28 19:51] LABS: ALT (GPT) 409 U/L (12-78); AST (GOT) 453 U/L (15-37)
[2016-10-28 20:00] VITALS: BP 118/70; PULSE 74; RESP 18; TEMP 99.5; O2SAT 95
[2016-10-28 21:14] LABS: AMPHETAMINE, URINE NEG (NEG); BARBITURATES, URINE NEG (NEG); COCAINE, URINE NEG (NEG)
[2016-10-28 21:19] LABS: BACTERIA, URINE RARE /hpf; BLOOD, URINE MOD (NEG); COMMENT (UR) CATH-CULTURE IND; CULTURE IF INDICATED CATH CULTURE IND; GLUCOSE,URINE NEG (NEG); KETONE, URINE NEG (NEG); NITRITE,URINE NEG (NEG); SQUAMOUS EPITHELIAL CELL URINE 1 /hpf (0-5); URINE COLOR YELLOW (YELLW/STRAW)
[2016-10-28 23:13] VITALS: O2SAT 95
[2016-10-29] VITALS: BP 128/77; PULSE 76; RESP 17; TEMP 98.6; O2SAT 96
[2016-10-29 08:00] VITALS: BP 118/82; PULSE 84; PULSE 93; RESP 20; TEMP 98.7; O2SAT 96
[2016-10-29] MEDS: buPROPion HCL 150 MG SUSTAINED RELEASE TAB PO SCH (08:56)
[2016-10-29] MEDS: TOPIRAMATE 25 MG TAB PO SCH ×3 (08:56→17:26)
[2016-10-29] MEDS: MULTIVITAMIN TAB PO SCH (08:56)
[2016-10-29] MEDS: FOLIC ACID 1 MG TAB PO SCH (08:56)
[2016-10-29] MEDS: METHOCARBAMOL 500 MG TAB PO SCH ×4 (08:56→22:23)
[2016-10-29] MEDS: INFLUENZA VIRUS VACCINE (QUADRIVALENT) 0.5 ML SYR IM ONE ×2 (08:57→08:59)
[2016-10-29] MEDS: THIAMINE HCL 100 MG TAB PO SCH (08:57)
[2016-10-29] MEDS: SODIUM CHLORIDE 0.9% FLUSH 5 ML FLUSH FLUSH SCH ×2 (08:58→22:24)
--- NOTE | 2016-10-29 09:20 | HHI.FPPN ---
Subjective Remarks FM Attending Note: Patient seen and examined. S: Chart and all resident physician notes reviewed. In summary this is a 46 year old male who was admitted with an admission diagnosis of Rhabdomyolysis, Elevated Troponin. This patient has a h/o MS which primarily causes balance difficulties and reportedly seizure activity. Reportedly possibly had a seizure causing him to fall down a flight of stairs. Noting some mild general pain today, but no significant injuries. Significant elevation of CPK; lack of visible significant injuries woudl suggest elevation from seizure activity. This AM is awake and alert. Objective Vitals Vital Signs Date Time Temp Pulse Resp B/P Pulse Ox O2 Delivery O2 Flow Rate FiO2 10/29/16 08:00 98.7 93 20 118/82 96 10/29/16 04:00 Nasal Cannula 2.00 10/29/16 00:00 98.6 76 17 128/77 96 10/29/16 00:00 Nasal Cannula 2.00 10/28/16 23:13 95 Nasal Cannula 2.00 10/28/16 22:00 Nasal Cannula 2.00 10/28/16 20:00 99.5 74 18 118/70 95 10/28/16 19:32 98.4 82 16 118/75 97 Nasal Cannula 2 10/28/16 18:40 81 17 118/78 96 Nasal Cannula 2 10/28/16 13:46 16 95 Nasal Cannula 3 10/28/16 12:47 100 18 94 Nasal Cannula 2 10/28/16 12:44 100 18 97/58 93 I/O 10/28/16 10/28/16 10/28/16 10/29/16 10/29/16 10/29/16 07:00 15:00 23:00 07:00 15:00 23:00 Intake Total 300 ml 300 ml Output Total 300 ml 1000 ml Balance 0 ml -700 ml Intake Oral 300 ml 300 ml Output Urine Total 300 ml 1000 ml Result Diagram: 10/28/16 1520 10/28/16 1350 Other Results Item Value Date Time Aspartate Amino Transf (AST/SGOT) 453 U/L H 10/28/16 1350 Alanine Aminotransferase (ALT/SGPT) 409 U/L H 10/28/16 1350 Ammonia 43 MCMOL/L H 10/28/16 1350 Total Creatine Kinase 2145 U/L H 10/28/16 1350 Total Creatine Kinase 7311 U/L H 10/29/16 0010 Total Creatine Kinase 7191 U/L H 10/29/16 1000 Troponin I 0.18 NG/ML H 10/28/16 1350 Troponin I 0.60 NG/ML H # 10/29/16 0010 Troponin I 0.58 NG/ML H 10/29/16 1000 Thyroid Stimulating Hormone 3rd Gen 0.519 uIU/ML 10/28/16 1350 Urine Specific [place] 1.017 10/28/16 2040 Urine Occult Blood MOD H 10/28/16 2040 Urine Nitrite NEG 10/28/16 2040 Urine Leukocyte Esterase NEG 10/28/16 2040 Urine Benzodiazepines Screen POS H 10/28/16 2040 Urine Cannabinoids Screen POS H 10/28/16 2040 Imaging Last [address] 10/28/16 1249 Signed Impressions: Service Date/Time: Friday, October 28, 2016 13:20 - CONCLUSION: 1. Mild diffuse motion artifact. 2. No acute hemorrhage or mass effect. 3. Small air-fluid level in the right maxillary sinus. Rolando Singh MD Maxillofacial CT 10/28/16 0000 Signed Impressions: Service Date/Time: Friday, October 28, 2016 13:20 - CONCLUSION: 1. No evidence of facial bone fracture. 2. Small air-fluid level in the right maxillary sinus and mucosal both maxillary sinuses and the anterior ethmoidal air cells. both maxillary sinuses. Rolando Singh MD Foot X-Ray 10/28/16 0000 Signed Impressions: Service Date/Time: Friday, October 28, 2016 14:30 - CONCLUSION: No acute osseous injury. Samy Russ MD Chest X-Ray 10/28/16 0000 Signed Impressions: Service Date/Time: Friday, October 28, 2016 14:54 - CONCLUSION: No acute disease. Rolando Singh MD Cervical Spine CT 10/28/16 0000 Signed Impressions: Service Date/Time: Friday, October 28, 2016 13:20 - CONCLUSION: Negative trauma CT. Rolando Singh MD Objective Remarks O. CONSTITUTIONAL/GEN: normally nourished, in NAD. EYES: conjunctiva normal, PERRLA, EOMI. LUNGS: clear A-P, respiratory effort is normal. CARDIOVASCULAR: RR without murmur or gallop. No significant edema. GI/ABD: soft without masses, without organomegaly. : no CVA tenderness NEURO: No focal deficits. SKIN: color normal, no rashes noted. MUSC: back is normal in appearance. Extremities are normal in appearance. PSYCH/MENTAL STATUS: Alert and oriented x 3. A/P Assessment and Plan This is a 46-year-old male with past medical history significant for multiple sclerosis. Admitted for rhabdomyolysis, altered mental status lead to be due to opiate overdose Problem List: (1) Altered mental status Status: Acute Plan: Patient being admitted after a fall down the stairs. He was in altered mental status after this fall. Mental status improved with Narcan. Altered mental status believed to be due to opiate overdose versus seizure versus TIA * Admitted to observation * Consulted patient's neurologist Dr. Sauceda: Recommendations appreciated * Placed on [facility] protocol * Holding opiates at this time, we'll slowly restart upon improvement of mental status * Rally pack * Zofran 4 mg IV when necessary nausea or vomiting * D5 half-normal saline IV fluids * Drug screen: Pending * Trending troponins * Trending CK-MB * CBC, BMP ordered for the a.m. * UA ordered: Results pending * Pneumonia ordered: Results pending * AST/ALT ordered: Results pending 10/29/16 Mental status has now cleared. Would suspect that alteration was due to post- ictal state. (2) Rhabdomyolysis Status: Acute Plan: Found have elevated creatinine kinase. Believed to be due to the fall. Admission levels total creatinine kinase 2145 * Status post bolus in the ED * IV fluids at this time * Continue to monitor 10/29/16 Continue IV hydration with monitoring of CPK and renal function. (3) Elevated troponin Status: Acute Plan: Elevated troponin believed to be due to the rhabdomyolysis * Trending troponins * Trending EKG: Currently EKG normal (4) MS (multiple sclerosis) Status: Acute Plan: Patient wants a history of MS. * Continue Topamax 25 mg by mouth 3 times a day * Holding Glatiramer at this time * Neurology was consulted and recommendations appreciated (5) Fall Status: Acute Plan: Patient had a fall down the stairs * Imaging: Within normal limits see above * See altered mental status plan above (6) Nutrition, metabolism, and development symptoms Status: Acute Plan: Regular diet Bed rest with bathroom privileges CIWA protocol Telemetry Neuro checks every 4 Vitals every 4 SCDs for DVT prophylaxis Titrate oxygen accordingly Monitor electrolytes replace accordingly CODE STATUS: Full code Disposition: Pending improvement of mental status Problem Qualifiers (1) Altered mental status: Qualified Code: R40.0 - Somnolence (2) Rhabdomyolysis: Qualified Code: T79.6XXA - Traumatic rhabdomyolysis, initial encounter Kenneth Seals MD Oct 29, 2016 09:20
[2016-10-29 10:27] LABS: AUTOMATED NEUTROPHIL # 8.1 TH/MM3 (1.8-7.7); BASOPHIL % 0.1 % (0.0-2.0); EOSINOPHIL % 0.2 % (0.0-4.0); HEMO FLAGS DIFF FINAL; LYMPH % 8.1 % (9.0-44.0); LYMPHOCYTE # 0.8 TH/MM3 (1.0-4.8); MEAN CELL VOLUME 91.8 FL (80.0-100.0); MEAN CORPUSCULAR HEMOGLOBIN 32.5 PG (27.0-34.0); MEAN CORPUSCULAR HGB CONC 35.4 % (32.0-36.0); MONO % 8.4 % (0.0-8.0); NEUT % 83.2 % (16.0-70.0); PLATELET COUNT 148 TH/MM3 (150-450); RED BLOOD COUNT 4.03 MIL/MM3 (4.50-5.90); RED CELL DISTRIBUTION WIDTH 13.4 % (11.6-17.2); WHITE BLOOD COUNT 9.8 TH/MM3 (4.0-11.0)
[2016-10-29 10:50] LABS: BICARBONATE 29.7 MEQ/L (21.0-32.0); POTASSIUM 3.9 MEQ/L (3.5-5.1)
[2016-10-29] MEDS: SODIUM CHLOR 0.9% 1000 ML INJ 1,000 ML IV SCH ×3 (11:51→22:00)
[2016-10-29 12:00] VITALS: BP 135/73; PULSE 86; RESP 18; TEMP 98.1; O2SAT 94
--- NOTE | 2016-10-29 12:33 | MB ---
cc: CALEB HAMILTON M.D. DATE OF CONSULTATION 10/29/2016 REASON FOR CONSULTATION The patient is a 46-year-old seen in neurological consultation. HISTORY The patient fell down stairs at home yesterday. He has no recollection of the events. He has no recollection of events preceding the fall and he does not remember being brought here. He was reportedly confused, disoriented and was given Narcan with some improvement in his mental status, but became sleepy again. There is a history of multiple sclerosis and chronic pain disorder taking pain medications. There is history of seizures, but he is very vague about this and may have had a seizure years ago. He thinks he is taking a seizure medication and seems to mention Robaxin. Therefore, the information is limited and the patient is not very good, enthusiastic historian at all. He actually provided very limited information. With some questioning, he gave us a bit more information, but again very limited. The patient apparently takes Robaxin, Xanax, Vicodin and Motrin. There is some apparent history of taking Topiramate and he says he takes Copaxone three times a week for the MS. He follows with Dr. Sauceda. He was awakened and became reasonably alert, but showed limited participation in the exam. Ocular movements and visual griffiths full. No evidence of tongue injury. No facial weakness. There is some bruising in the left maxillary region and some bruising elsewhere in the lower extremities, but he attributes some of that to other problems rather than the fall yesterday. He has good strength throughout on the bedside exam and reflexes were diminished, nearly absent throughout. Plantar responses were flexor. Sensory exam limited with no overt findings. ANCILLARY DATA The CT brain is negative for acute process. The CT cervical spine shows any negative findings. The white count today 9.8, hemoglobin 13.1, platelets 148 and yesterday platelets were 203. Sodium and potassium normal, BUN 31, creatinine 2.25, glucose 121 and this is from yesterday. Calcium was low at 7.7. CPK is 2145 and today is 7311. Toxicology positive cannabinoids and positive benzodiazepines. Urine opiates negative. ASSESSMENT 1. Fall yesterday, possible component of seizure being described. Limited history. Multiple sclerosis. Chronic pain medications. 2. Rhabdomyolysis PLAN I will request an EEG on this gentleman. He is anxious to go home and he follows with Dr. Sauceda for neurological care including the multiple sclerosis. If he is EEG is normal and CPK is trending down and if medically stable, then he would go home and follow with Dr. Sauceda for neurological care. Otherwise, we will reassess him in the hospital tomorrow. Thank you for asking us to assist in his care. MD EDUAR Ma/VIJAY /10:59 AM /12:25 PM
[2016-10-29 13:52] LABS: CKMB 111.9 NG/ML (0.5-3.6)
[2016-10-29 16:00] VITALS: BP 138/89; PULSE 72; RESP 18; TEMP 98.4; O2SAT 95
[2016-10-29] MEDS ORDERED: BACITRACIN TOP OINT 15 GM TUBE TOP PRN (16:00)
--- NOTE | 2016-10-29 19:01 | EKG ---
Date Performed: 10/29/2016 Time Performed: 01:32:08 PTAGE: 46 years EKG: Sinus rhythm Non-specific ST/T wave changes Compared to the PREVIOUS TRACING from 10/28/16, no significant change DOCTOR: Dylan Padilla Interpretating Date/Time 10/29/2016 18:59:38
[2016-10-29 20:00] VITALS: BP 138/90; PULSE 73; RESP 18; TEMP 98.7; O2SAT 96
--- NOTE | 2016-10-29 22:05 | EKG ---
Date Performed: 10/28/2016 Time Performed: 21:50:07 PTAGE: 46 years EKG: Sinus rhythm POSSIBLE EARLY REPOLARIZATION PREVIOUS TRACING : 10/28/2016 14.53 Compared to prior tracing no significant change DOCTOR: Dylan Padilla Interpretating Date/Time 10/29/2016 22:04:44
--- NOTE | 2016-10-29 22:47 | EKG ---
Date Performed: 10/28/2016 Time Performed: 14:53:57 PTAGE: 46 years EKG: Sinus rhythm POSSIBLE LVH PREVIOUS TRACING : 08/08/2009 14.58 Compared to prior tracing no significant change DOCTOR: Dylan Padilla Interpretating Date/Time 10/29/2016 22:46:34
[2016-10-30 00:33] VITALS: BP 137/77; PULSE 80; RESP 18; TEMP 97.9; O2SAT 97
[2016-10-30] MEDS: SODIUM CHLOR 0.9% 1000 ML INJ 1,000 ML IV SCH ×2 (03:00→05:34)
[2016-10-30 05:09] VITALS: BP 133/82; PULSE 80; RESP 16; TEMP 98.4; O2SAT 96
[2016-10-30 06:26] LABS: AUTOMATED NEUTROPHIL # 7.9 TH/MM3 (1.8-7.7); BASOPHIL % 0.2 % (0.0-2.0); EOSINOPHIL % 0.3 % (0.0-4.0); HEMATOCRIT 37.6 % (39.0-51.0); HEMO FLAGS DIFF FINAL; LYMPH % 12.5 % (9.0-44.0); LYMPHOCYTE # 1.2 TH/MM3 (1.0-4.8); MEAN CELL VOLUME 91.3 FL (80.0-100.0); MEAN CORPUSCULAR HEMOGLOBIN 31.6 PG (27.0-34.0); MEAN CORPUSCULAR HGB CONC 34.6 % (32.0-36.0); MONO % 7.2 % (0.0-8.0); NEUT % 79.8 % (16.0-70.0); PLATELET COUNT 147 TH/MM3 (150-450); RED BLOOD COUNT 4.12 MIL/MM3 (4.50-5.90); RED CELL DISTRIBUTION WIDTH 13.3 % (11.6-17.2); WHITE BLOOD COUNT 9.9 TH/MM3 (4.0-11.0)
[2016-10-30 07:08] LABS: BICARBONATE 25.4 MEQ/L (21.0-32.0); POTASSIUM 3.6 MEQ/L (3.5-5.1)
[2016-10-30 07:25] LABS: CKMB 26.4 NG/ML (0.5-3.6)
[2016-10-30 08:00] VITALS: BP 139/91; PULSE 76; RESP 18; TEMP 98.6; O2SAT 96
[2016-10-30] MEDS: FOLIC ACID 1 MG TAB PO SCH (08:19)
[2016-10-30] MEDS: buPROPion HCL 150 MG SUSTAINED RELEASE TAB PO SCH (08:19)
[2016-10-30] MEDS: METHOCARBAMOL 500 MG TAB PO SCH (08:20)
[2016-10-30] MEDS: SODIUM CHLORIDE 0.9% FLUSH 5 ML FLUSH FLUSH SCH (08:20)
[2016-10-30] MEDS: THIAMINE HCL 100 MG TAB PO SCH (08:20)
[2016-10-30] MEDS: MULTIVITAMIN TAB PO SCH (08:20)
[2016-10-30] MEDS: TOPIRAMATE 25 MG TAB PO SCH (08:20)
--- NOTE | 2016-10-30 08:42 | HHI.DS ---
Discharge Summary Admission Date Oct 28, 2016 at 15:28 Discharge Date: Oct 30, 2016 Admitting Diagnosis rhabdomyolysis, elevated troponin (1) Altered mental status Diagnosis: Principal Plan: Patient being admitted after a fall down the stairs. He was in altered mental status after this fall. Per neurology because of altered mental status due to seizure * Admitted to observation * Consulted patient's neurologist Dr. Sauceda: Recommendations appreciated * Placed on CIWA protocol * Rally pack * Zofran 4 mg IV when necessary nausea or vomiting * IV fluids NS (2) Rhabdomyolysis Diagnosis: Principal Plan: Found have elevated creatinine kinase. Believed to be due to the fall. Admission levels total creatinine kinase 2145, 10/29/16 creatinine kinase was 7191. Today creatinine kinase is 4556. BUN/creatinine: 13/0.8 * Continue IV fluids until time of discharge * Continue to monitor (3) Elevated troponin Diagnosis: Secondary Plan: Elevated troponin believed to be due to the rhabdomyolysis. Patient denies any chest pain * Trending EKG: Currently EKGs normal (4) MS (multiple sclerosis) Diagnosis: Secondary Plan: Patient wants a history of MS. * Continue Topamax 25 mg by mouth 3 times a day * Holding Glatiramer at this time * Neurology was consulted and recommendations appreciated (5) Fall Diagnosis: Principal Plan: Patient had a fall down the stairs * Imaging: Within normal limits see above * See altered mental status plan above (6) Nutrition, metabolism, and development symptoms Diagnosis: Secondary Plan: Regular diet Bed rest with bathroom privileges CIWA protocol Telemetry Neuro checks every 4 Vitals every 4 SCDs for DVT prophylaxis Titrate oxygen accordingly Monitor electrolytes replace accordingly CODE STATUS: Full code Disposition: Discharged home today Consultants neurology Procedures none Brief History History obtained from his girlfriend as patient would fall asleep during exam. This is a 46-year-old male with past medical history significant for multiple sclerosis per girlfriend he takes some sort of seizure medication but doesn't know what it is for his MS off-and-on. He is not currently following up with anyone though his neurologist is Dr. Sauceda. He gets pain medicines and he sees a pain management doctor for his chronic pain caused by his MS. He is otherwise taking his pain medications on time and as prescribed. Today he was upstairs at his house when he says he fell down the stairs. He doesn't know why he fell down the stairs. Neighbors saw him fall rushed over tried to help him he was confused and disoriented and they called 911. While in the ambulance he received a dose of Narcan and became less confused. And upon arriving in the ED he received a second dose of Narcan and his altered mental status also improved. By time of evaluation he would answer questions and then falls right back to sleep. CBC/BMP: 10/30/16 0526 10/30/16 0526 Significant Findings Laboratory Tests Test 10/28/16 10/28/16 10/28/16 10/29/16 13:50 15:20 20:40 00:10 Activated Partial 24.0 SEC Thromboplast Time (24.3-30.1) Blood Urea Nitrogen 31 MG/DL (7-18) Creatinine 2.25 MG/DL (0.60-1.30) Estimat Glomerular Filtration 31 ML/MIN (>89) Rate Random Glucose 121 MG/DL (74-106) Calcium Level 7.7 MG/DL (8.5-10.1) Aspartate Amino Transf 453 U/L (15-37) (AST/SGOT) Alanine Aminotransferase 409 U/L (12-78) (ALT/SGPT) Ammonia 43 MCMOL/L (11-32) Total Creatine Kinase 2145 U/L 7311 U/L (39-308) (39-308) Creatine Kinase MB 61.3 NG/ML 182.0 NG/ML (0.5-3.6) (0.5-3.6) Troponin I 0.18 NG/ML 0.60 NG/ML (0.02-0.05) (0.02-0.05) Salicylates Level LESS THAN 1.7 MG/DL (2.8-20.0) Acetaminophen Level LESS THAN 2.0 MCG/ML (10.0-30.0) White Blood Count 13.9 TH/MM3 (4.0-11.0) Neutrophils (%) (Auto) 89.0 % (16.0-70.0) Lymphocytes (%) (Auto) 3.8 % (9.0-44.0) Neutrophils # (Auto) 12.3 TH/MM3 (1.8-7.7) Lymphocytes # (Auto) 0.5 TH/MM3 (1.0-4.8) Monocytes # (Auto) 1.0 TH/MM3 (0-0.9) Urine Protein 30 mg/dL (NEG-TRACE) Urine Occult Blood MOD (NEG) Urine WBC 8 /hpf (0-5) Urine Bacteria RARE /hpf (NONE) Urine Benzodiazepines Screen POS (NEG) Urine Cannabinoids Screen POS (NEG) Test 10/29/16 10/30/16 10:00 05:26 Red Blood Count 4.03 MIL/MM3 4.12 MIL/MM3 (4.50-5.90) (4.50-5.90) Hematocrit 37.0 % 37.6 % (39.0-51.0) (39.0-51.0) Platelet Count 148 TH/MM3 147 TH/MM3 (150-450) (150-450) Neutrophils (%) (Auto) 83.2 % 79.8 % (16.0-70.0) (16.0-70.0) Lymphocytes (%) (Auto) 8.1 % (9.0-44.0) Monocytes (%) (Auto) 8.4 % (0.0-8.0) Neutrophils # (Auto) 8.1 TH/MM3 7.9 TH/MM3 (1.8-7.7) (1.8-7.7) Lymphocytes # (Auto) 0.8 TH/MM3 (1.0-4.8) Estimat Glomerular Filtration 85 ML/MIN (>89) Rate Random Glucose 108 MG/DL 109 MG/DL (74-106) (74-106) Calcium Level 8.0 MG/DL 8.1 MG/DL (8.5-10.1) (8.5-10.1) Total Creatine Kinase 7191 U/L 4556 U/L (39-308) (39-308) Creatine Kinase MB 111.9 NG/ML 26.4 NG/ML (0.5-3.6) (0.5-3.6) Troponin I 0.58 NG/ML (0.02-0.05) Chloride Level 109 MEQ/L (98-107) Imaging Last Impressions Head CT 10/28/16 5580 Signed Impressions: Service Date/Time: Friday, October 28, 2016 13:20 - CONCLUSION: 1. Mild diffuse motion artifact. 2. No acute hemorrhage or mass effect. 3. Small air-fluid level in the right maxillary sinus. Rolando Singh MD Maxillofacial CT 10/28/16 0000 Signed Impressions: Service Date/Time: Friday, October 28, 2016 13:20 - CONCLUSION: 1. No evidence of facial bone fracture. 2. Small air-fluid level in the right maxillary sinus and mucosal both maxillary sinuses and the anterior ethmoidal air cells. both maxillary sinuses. Rolando Singh MD Foot X-Ray 10/28/16 Signed Impressions: Service Date/Time: Friday, October 28, 2016 14:30 - CONCLUSION: No acute osseous injury. Samy Russ MD Chest X-Ray 10/28/16 Signed Impressions: Service Date/Time: Friday, October 28, 2016 14:54 - CONCLUSION: No acute disease. Rolando Singh MD Cervical Spine CT 10/28/16 Signed Impressions: Service Date/Time: Friday, October 28, 2016 13:20 - CONCLUSION: Negative trauma CT. Rolando Singh MD PE at Discharge O. CONSTITUTIONAL/GEN: normally nourished, in NAD. EYES: conjunctiva normal, PERRLA, EOMI. LUNGS: clear A-P, respiratory effort is normal. CARDIOVASCULAR: RR without murmur or gallop. No significant edema. GI/ABD: soft without masses, without organomegaly. : no CVA tenderness NEURO: No focal deficits. SKIN: color normal, no rashes noted. MUSC: back is normal in appearance. Extremities are normal in appearance. PSYCH/MENTAL STATUS: Alert and oriented x 3. Hospital Course Patient was admitted on 10/28/16 for a fall down the stairs. Subsequently found to have rhabdomyolysis. This is believed to be due to a seizure. He has a neurologist Dr. Lynn that he sees as an outpatient for his Multiple Sclerosis and Seizures. He is altered mental status improved with rest during the hospitalization. His rhabdomyolysis was treated during the hospitalization with IV fluids, and it subsequently improved. Patient report he feels comfortable with being discharged and following up with his neurologist as an outpatient. Pt Condition on Discharge: Stable Discharge Disposition: Discharge Home Discharge Instructions DIET: Follow Instructions for: As Tolerated, No Restrictions Speech Therapy-Diet Recommends: Regular Activities you can perform: Regular-No Restrictions Follow up Referrals: Neurology - 1 Week PCP Follow-up - 1 Week Continued Medications: Alprazolam (Alprazolam) 0.5 Mg Tab 0.5 MG PO BID Anxiety Ref 0 TAB Bupropion HCl ER 24 HR (Wellbutrin Xl 24 HR) 150 Mg Tab 150 MG PO DAILY Control Depression Ref 0 TAB Glatiramer Inj (Copaxone Inj) 40 Mg/Ml Syr 40 MG SQ MOWEFR Inject contents of syringe (40mg) three times a week on Thursday, Thursday and Thursday Multiple Sclerosis Ref 0 SYRINGE Oxycodone ER (Oxycontin) 60 Mg Tab 60 MG PO Q12HR Pain Management Ref 0 TAB Oxycodone-Acetaminophen (Percocet) 10-325 mg Tab 1 TAB PO BID PRN BREAKTHROUGH PAIN Ref 0 TAB Topiramate (Topamax) 25 Mg Tab 25 MG PO TID Control Seizures #60 Ref 0 TAB Manuel Coffman MD R2 Oct 30, 2016 08:42
--- NOTE | 2016-10-30 08:42 | HHI.FPPN ---
Subjective Remarks Patient seen and examined this morning. Afebrile vital signs stable. Acute kidney injury has resolved. CK-MB is trending down. Patient says he is ready to get out of the hospital and is happy to hear that we are ready to discharge him. Explained to him that it was likely seizure that was the cause of this event, he agrees with that assessment. He will follow-up with his neurologist as an outpatient. Endorses: None Denies: Fever, chills, nausea, vomiting, shortness of breath, chest pain, headache, abdominal pain, calf pain (Manuel Coffman MD R2) Objective Vitals Vital Signs Date Time Temp Pulse Resp B/P Pulse Ox O2 Delivery O2 Flow Rate FiO2 10/30/16 05:09 98.4 80 16 133/82 96 10/30/16 00:33 97.9 80 18 137/77 97 10/29/16 22:00 Room Air 10/29/16 20:00 98.7 73 18 138/90 96 10/29/16 16:00 98.4 72 18 138/89 95 10/29/16 15:00 Nasal Cannula 2.00 10/29/16 12:00 98.1 86 18 135/73 94 I/O 10/29/16 10/29/16 10/29/16 10/30/16 10/30/16 10/30/16 07:00 15:00 23:00 07:00 15:00 23:00 Intake Total 300 ml 1290 ml 1500 ml 2000 ml Output Total 1000 ml 2500 ml 1200 ml 1300 ml Balance -700 ml -1210 ml 300 ml 700 ml Intake Oral 300 ml 0 ml 500 ml 800 ml IV Total 1290 ml 1000 ml 1200 ml Output Urine Total 1000 ml 2500 ml 1200 ml 1300 ml # Bowel Movements 0 1 0 (Manuel Coffman MD R2) Result Diagram: 10/30/16 0526 10/30/16 0526 Imaging Last Impressions Head CT 10/28/16 1249 Signed Impressions: Service Date/Time: Friday, October 28, 2016 13:20 - CONCLUSION: 1. Mild diffuse motion artifact. 2. No acute hemorrhage or mass effect. 3. Small air-fluid level in the right maxillary sinus. Rolando Singh MD Maxillofacial CT 10/28/16 0000 Signed Impressions: Service Date/Time: Friday, October 28, 2016 13:20 - CONCLUSION: 1. No evidence of facial bone fracture. 2. Small air-fluid level in the right maxillary sinus and mucosal both maxillary sinuses and the anterior ethmoidal air cells. both maxillary sinuses. Rolando Singh MD Foot X-Ray 10/28/16 Signed Impressions: Service Date/Time: Friday, October 28, 2016 14:30 - CONCLUSION: No acute osseous injury. Saym Russ MD Chest X-Ray 10/28/16 Signed Impressions: Service Date/Time: Friday, October 28, 2016 14:54 - CONCLUSION: No acute disease. Rolando Singh MD Cervical Spine CT 10/28/16 Signed Impressions: Service Date/Time: Friday, October 28, 2016 13:20 - CONCLUSION: Negative trauma CT. Rolando Singh MD Objective Remarks O. CONSTITUTIONAL/GEN: normally nourished, in NAD. EYES: conjunctiva normal, PERRLA, EOMI. LUNGS: clear A-P, respiratory effort is normal. CARDIOVASCULAR: RR without murmur or gallop. No significant edema. GI/ABD: soft without masses, without organomegaly. : no CVA tenderness NEURO: No focal deficits. SKIN: color normal, no rashes noted. MUSC: back is normal in appearance. Extremities are normal in appearance. PSYCH/MENTAL STATUS: Alert and oriented x 3. Medications and IVs Current Medications Medications (Trade) Dose Ordered Sig/Ron Route Start Time Stop Time Status Last Admin (NS Flush) 2 ml UNSCH PRN FLUSH 10/28/16 16:15 (NS Flush) 2 ml BID FLUSH 10/28/16 21:00 10/30/16 08:20 (Tylenol) 650 mg Q4H PRN PO 10/28/16 16:15 (Zofran Inj) 4 mg Q6H PRN IVP 10/28/16 16:15 (Dulcolax Supp) 10 mg DAILY PRN AR 10/28/16 16:15 (Narcan Inj) 0.4 mg UNSCH PRN IV 10/28/16 16:15 (Romazicon Inj) 0.2 mg Q1M PRN IV PUSH 10/28/16 16:15 (Ativan) 1 mg Q4H PRN PO 10/28/16 16:15 (Ativan Inj) 1 mg Q4H PRN IV PUSH 10/28/16 16:15 (Ativan) 2 mg Q2H PRN PO 10/28/16 16:15 (Ativan Inj) 2 mg Q2H PRN IV PUSH 10/28/16 16:15 (Ativan Inj) 2 mg Q1H PRN IV PUSH 10/28/16 16:15 (Ativan Inj) 2 mg Q15M PRN IV PUSH 10/28/16 16:15 (Vitamin B1) 100 mg DAILY PO 10/29/16 09:00 10/30/16 08:20 (Folate) 1 mg DAILY PO 10/29/16 09:00 10/30/16 08:19 (Theragran) 1 tab DAILY PO 10/29/16 09:00 10/30/16 08:20 (Robaxin) 500 mg QID PO 10/28/16 18:00 10/30/16 08:20 (Wellbutrin Sr) 150 mg DAILY PO 10/29/16 09:00 10/30/16 08:19 Topiramate 25 mg 25 mg TID PO 10/29/16 09:00 10/30/16 08:20 (NS 1000 ml Inj) 1,000 ml @ 200 mls/hr Q5H IV 10/29/16 12:00 10/30/16 05:34 (Baciguent Oint) 1 applic DAILY PRN TOP 10/29/16 16:00 (Manuel Coffman MD R2) A/P Assessment and Plan This is a 46-year-old male with past medical history significant for multiple sclerosis. Admitted for rhabdomyolysis, altered mental status Discharge Planning Discharge home today (Manuel Coffmna MD R2) Attending Attestation Case reviewed and discussed with the resident team. Agree with plan of care as discussed with me and documented in the resident note. (Kenneth Seals MD) Problem List: (1) Altered mental status Status: Acute Plan: Patient being admitted after a fall down the stairs. He was in altered mental status after this fall. Per neurology because of altered mental status due to seizure * Admitted to observation * Consulted patient's neurologist Dr. Sauceda: Recommendations appreciated * Placed on CIWA protocol * Rally pack * Zofran 4 mg IV when necessary nausea or vomiting * IV fluids NS (2) Rhabdomyolysis Status: Acute Plan: Found have elevated creatinine kinase. Believed to be due to the fall. Admission levels total creatinine kinase 2145, 10/29/16 creatinine kinase was 7191. Today creatinine kinase is 4556. BUN/creatinine: 13/0.8 * Continue IV fluids until time of discharge * Continue to monitor (3) Elevated troponin Status: Acute Plan: Elevated troponin believed to be due to the rhabdomyolysis. Patient denies any chest pain * Trending EKG: Currently EKGs normal (4) MS (multiple sclerosis) Status: Acute Plan: Patient wants a history of MS. * Continue Topamax 25 mg by mouth 3 times a day * Holding Glatiramer at this time * Neurology was consulted and recommendations appreciated (5) Fall Status: Acute Plan: Patient had a fall down the stairs * Imaging: Within normal limits see above * See altered mental status plan above (6) Nutrition, metabolism, and development symptoms Status: Acute Plan: Regular diet Bed rest with bathroom privileges [facility] protocol Telemetry Neuro checks every 4 Vitals every 4 SCDs for DVT prophylaxis Titrate oxygen accordingly Monitor electrolytes replace accordingly CODE STATUS: Full code Disposition: Discharged home today (Manuel Coffman MD R2) Problem Qualifiers (1) Altered mental status: Qualified Code: R40.0 - Somnolence (2) Rhabdomyolysis: Qualified Code: T79.6XXA - Traumatic rhabdomyolysis, initial encounter Manuel Coffman MD R2 Oct 30, 2016 08:42 Kenneth Seals MD Oct 30, 2016 14:07
--- NOTE | 2016-10-30 09:22 | HHI.DCPOC ---
Discharge Care Plan Diagnosis: (1) Elevated troponin (2) Rhabdomyolysis (3) Altered mental status (4) Fall (5) MS (multiple sclerosis) Goals to Promote Your Health * To prevent worsening of your condition and complications * To maintain your health at the optimal level Directions to Meet Your Goals Take your medications as prescribed Follow your dietary instruction Follow activity as directed Keep your appointments as scheduled Take your immunizations and boosters as scheduled If your symptoms worsen call your PCP, if no PCP go to Urgent Care Center or Emergency Room Smoking is Dangerous to Your Health. Avoid second hand smoke Call the 24-hour hour crisis hotline for domestic abuse at Alex Ferrell MD R1 Oct 30, 2016 09:22
--- NOTE | 2016-10-30 16:28 | MG ---
cc: JOSE RIVERA Lab No: [id number] Date: 10/30/16 Age: Sex: M Race: HISTORY Confused, disoriented 46-year-old man with a history of seizure a year ago. MEDICATIONS Wellbutrin, Robaxin. DESCRIPTION A symmetric 10 Hz, 60 microvolt posterior and at times diffuse rhythm is noted including overall synchronous and symmetric. I do not see any epileptiform or seizure activity. Hyperventilation was performed without any change in the background. Photic stimulation was not performed. IMPRESSION Generally a normal EEG. No evidence for a focal or diffuse abnormality. Wellbutrin of course can lower the seizure threshold quite a bit, and if the patient has a history of seizures I would recommend stopping that if possible. MD PAVEL Burrows/BJF /3:04 PM /4:22 PM
== END 2016-10-30 10:37 | disposition home or self-care (01) | DRG 101 ==
LOC: NEPC 12:40 → NEDA 15:28 → N04B 19:58
PROVIDERS: ADMIT Family Medicine; ATTEND Family Medicine
DX: R56.9 Unspecified convulsions (principal); N17.9 Acute kidney failure, unspecified; G35 Multiple sclerosis; T79.6XXA Traumatic ischemia of muscle, initial encounter; R74.8 Abnormal levels of other serum enzymes; W10.9XXA Fall (on) (from) unspecified stairs and steps, initial encounter; G89.29 Other chronic pain; I10 Essential (primary) hypertension; F17.210 Nicotine dependence, cigarettes, uncomplicated; F12.90 Cannabis use, unspecified, uncomplicated
CPT/HCPCS: 70450; 70486; 71010; 72125; 73630; 80048; 80074; 80307; 80320; 80329; 81001; 82140; 82550; 82552; 84443; 84450; 84460; 84484; 85025; 85610; 85730; 87086; 90471; 90686; 90714; 93005; 95819; 96361; 96374; 96375; G0480; J2310; J2405; J7030; Q2038